=== PATIENT | male | born 1970 | race Caucasian/White ===

== ENCOUNTER 2024-12-30 15:19 | Outpatient (CLI) | payer BC | END 2024-12-30 15:20 | disposition home or self-care (01) | LOC: ULT 15:19 | PROVIDERS: ATTEND Physician Assistant Medical | DX: E83.119 Hemochromatosis, unspecified (principal); K76.0 Fatty (change of) liver, not elsewhere classified; K27.9 Peptic ulcer, site unspecified, unspecified as acute or chronic, without hemorrhage or perforation; K62.5 Hemorrhage of anus and rectum; R19.8 Other specified symptoms and signs involving the digestive system and abdomen; R93.2 Abnormal findings on diagnostic imaging of liver and biliary tract; Z80.0 Family history of malignant neoplasm of digestive organs; Z86.0100 Personal history of colon polyps, unspecified | CPT/HCPCS: 76705 ==